=== PATIENT | female | born 1965 | race Caucasian/White ===

== ENCOUNTER → 2022-06-11 10:01 | Outpatient (CLI) | payer BC, SELFPAY | LOC: RT 10:09 | PROVIDERS: Visit Provider Nurse Practitioner Family | DX: R55 Syncope and collapse (principal) | CPT/HCPCS: 93225; 93226 ==

== ENCOUNTER 2022-06-30 13:49 | Emergency (ER) | payer BC, SELFPAY ==
[2022-06-30] VITALS (10 sets, daily range): BP systolic 111–160; BP diastolic 61–78; PULSE 60–83; RESP 18–96; TEMP 36.4–37; O2SAT 96–100; BMI 43.5
--- NOTE | 2022-06-30 14:27 | CT_ITS ---
PROCEDURE INFORMATION: Exam: CT Head Without Contrast Exam date and time: 06/30/2022 2:37 PM Age: 57 years old Clinical indication: Altered mental status/memory loss; Confusion or disorientation; Additional info: AMS TECHNIQUE: Imaging protocol: Computed tomography of the head without contrast. Radiation optimization: All CT scans at this facility use at least one of these dose optimization techniques: automated exposure control; mA and/or kV adjustment per patient size (includes targeted exams where dose is matched to clinical indication); or iterative reconstruction. REPORTING DATA: Count of CT and Cardiac NM exams in prior 12 months: This patient has received 0 known CTs and 0 known cardiac nuclear medicine studies in the 12 months prior to the current study. COMPARISON: No relevant prior studies available. FINDINGS: Brain: Normal. No hemorrhage. Unremarkable white matter. No mass effect. Cerebral ventricles: No ventriculomegaly. Paranasal sinuses: Approximately 2.5 cm left maxillary mucous retention cyst. Mastoid air cells: Visualized mastoid air cells are well aerated. Bones/joints: Unremarkable. No acute fracture. Soft tissues: Unremarkable. IMPRESSION: Approximately 2.5 cm left maxillary mucous retention cyst but no evidence of acute intracranial pathology.
[2022-06-30 14:50] LABS: Basophils # 0.1 K/mm3 (0-0.2); Basophils % 0.6 % (0.1-2.0); Eosinophils # 0.1 K/mm3 (0.0-0.4); Eosinophils % 0.9 % (0.1-12.0); Hematocrit 46.5 % (37.0-47.0); Hemoglobin 15.1 g/dL (12.2-16.2); Lymphocytes # 1.8 K/mm3 (0.7-4.5); Lymphocytes % 16.6 % (10-50); Mean Corpuscular HGB Conc 32.4 g/dL (31.8-35.4); Mean Corpuscular Hemoglobin 29.1 pg (27.0-31.2); Mean Corpuscular Volume 89.7 fl (81-99); Mean Platelet Volume 8.3 fl (7.4-10.4); Monocytes # 0.6 K/mm3 (0.1-1.0); Monocytes % 5.6 % (1.7-9.3); Neutrophils # 8.4 K/mm3 (1.8-7.8); Neutrophils % 76.2 % (37.0-80.0); Platelet Count 349 K/mm3 (142-424); Red Blood Count 5.19 M/mm3 (4.20-5.40); Red Cell Distribution Width 13.5 % (11.5-17.5); White Blood Count 11.1 K/mm3 (4.8-10.8)
[2022-06-30 14:51] LABS: Chloride 104 mmol/L (98-107)
[2022-06-30 14:52] LABS: Sodium 140 mmol/L (136-145)
[2022-06-30 14:54] LABS: Alanine Aminotransferase 21 U/L (12-78); Alkaline Phosphatase 112 U/L (38-126); Aspartate Amino Transferase 37 U/L (14-36); Bilirubin,Total 0.4 mg/dl (0.2-1.3); Blood Urea Nitrogen 21 mg/dl (7-17); Carbon Dioxide 29 mmol/L (22.0-30.0); Creatinine Clearance Estimated 81 mL/min (50-200); Estimated Glomerular Filt Rate 86 ml/min (>60); GFR (African American) 104 ML/MIN (>60)
[2022-06-30 14:55] LABS: Albumin Level 4.4 g/dl (3.5-5.0); Albumin/Globulin Ratio 1.2 (1.1-1.8); Globulin 3.7 g/dL (1.3-3.2); Glucose 88 mg/dl (74-100); Total Protein,Serum 8.1 g/dl (6.3-8.2)
[2022-06-30 15:00] LABS: C-Reactive Protein 28.2 mg/L (0-4)
--- NOTE | 2022-06-30 15:14 | XR_ITS ---
PROCEDURE INFORMATION: Exam: XR Chest Exam date and time: 06/30/2022 3:47 PM Age: 57 years old Clinical indication: Cough TECHNIQUE: Imaging protocol: Radiologic exam of the chest. Views: 1 view. COMPARISON: No relevant prior studies available. FINDINGS: Lungs: No evidence of acute pulmonary process. Pleural spaces: Unremarkable. No pleural effusion. No pneumothorax. Heart/Mediastinum: Unremarkable. No cardiomegaly. Bones/joints: Unremarkable. IMPRESSION: No evidence of acute pulmonary process.
[2022-06-30 15:21] LABS: Microscopic, Urine URINE MICROSCOPIC (MICROSCOPIC)
[2022-06-30 15:33] LABS: Appearance,Urine CLEAR (Clear); Bilirubin,Urine Negative (Negative); Blood, Urine Negative (Negative); Color,Urine YELLOW (Yellow); Glucose,Urine (UA) Negative (Negative); Ketones,Urine Negative (Negative); Leukocyte Esterase,Urine 1+ (Negative); Nitrate,Urine Negative (Negative); Protein,Urine Negative (Negative); Specific Gravity, Urine 1.025 (1.005-1.030); Urobilinogen,Urine 0.2 EU/dl (0.2)
--- NOTE | 2022-06-30 15:48 | HMH.EDGENADL ---
Discharge Plan Disposition Patient Disposition: Home, Self-Care Condition: Good Prescriptions Prescriptions: New cefdinir 300 mg capsule 300 mg PO BID 5 Days Qty: 10 0RF Referrals Follow up/Referrals: Tish Helton APRN [Primary Care Provider] - See instructions Clinical Impressions Clinical Impression: UTI (urinary tract infection) Instructions Patient Instructions: DI for Urinary Tract Infection (UTI) Discharge ED Provider: Domingo Alonso General Adult HPI General Chief complaint: Dizziness Stated complaint: soa dizzy heart racing Time Seen by Provider: 06/30/22 14:00 Mode of Arrival: Ambulatory Source of Information: Patient Limitations: No Limitations Description of Symptoms (Recalled from ER Triage Doc. by RN): Pt reports multiple complaints today, including lightheadedness and short of air at [facility] working today and cleared by EMS but brother presents her to ED; pt disoriented to location and reports recently disappearing and I woke up in [place] with only Rx anti-HTN meds and h/o; History of Present Illness HPI narrative: Patient is a 57-year-old who was recently admitted to the hospital for disorientation presents with lightheadedness and disorientation. She says that she was admitted to [facility] for disorientation. She says that she was admitted for 3 days. She says that since then she has continued to be a little confused. She says that she did not really get a diagnosis after she was discharged. She denies any chest or abdominal pain. Denies any dysuria. Denies any shortness of breath. Denies any cough or congestion. Denies any trauma. No blood thinners or antiplatelets. Related Data Previous Rx's Medication Instructions Recorded cefdinir 300 mg capsule 300 mg PO BID 5 days #10 caps 06/30/22 Allergies Allergy/AdvReac Type Severity Reaction Status Date / Time No Known Allergies Allergy Verified 06/30/22 14:34 [facility] Disclaimer: The information contained in this section may have been updated after the patient was seen, as this information can be updated by other users. Social History Smoking Status: Never smoker alcohol intake: never current occupational status: employed Travel in the last 8 weeks: None ROS Obtained: Yes All systems reviewed & no additional complaints except as documented Physical Exam General General appearance: alert and in no apparent distress Head Head exam: atraumatic, normocephalic and normal inspection Eye Eye exam: Present normal appearance and PERRL ENT ENT exam: Present normal exam, mucous membranes moist and normal external ear exam Neck Neck exam: Present normal inspection and trachea midline Chest Chest inspection: Present normal inspection and symmetric chest wall rise Respiratory Respiratory exam: Present normal lung sounds bilaterally; Absent respiratory distress Cardiovascular Cardiovascular exam: Present regular rate and normal rhythm Abdominal Exam Abdominal exam: Present soft; Absent distention, tenderness or guarding Extremities Exam Extremities exam: Present normal inspection; Absent edema Neurological Exam Neurological exam: Present alert and oriented X3 Psychiatric Psychiatric exam: Present normal affect and normal mood Skin Skin exam: Present warm, dry, intact and normal color Medical Decision Making Medical Records Medical records reviewed: Yes I reviewed the patient's medical records. Andrea Inquiry Pt receiving controlled substance: No Vital Signs: 06/30/22 14:13 06/30/22 14:00 06/30/22 14:27 Temperature 97.5 F L Temperature Source Oral Pulse Rate 76 73 Pulse Rate [Right Radial] 78 Respiratory Rate 18 Blood Pressure 116/78 126/62 Blood Pressure [Right Arm] 116/78 Blood Pressure Mean 81 72 Blood Pressure Mean [Right Arm] 90 Blood Pressure Source [Right Arm] Automatic Cuff Blood Pressure Position [Right Arm] Supine 02 Sat by Pulse Oximetry 96
[2022-06-30 15:52] LABS: Bacteria,Urine Trace /lpf
== END 2022-06-30 17:00 | disposition home or self-care (01) ==
PROVIDERS: Emergency Provider Student in an Organized Health Care Education/Training Program; PCP Nurse Practitioner Family
DX: N39.0 Urinary tract infection, site not specified (principal); B95.4 Other streptococcus as the cause of diseases classified elsewhere; R41.0 Disorientation, unspecified
CPT/HCPCS: 70450; 71045; 80053; 81001; 85025; 86140; 87086; 87088; 87186; 96360; 99284; 99285

== ENCOUNTER → 2022-07-02 10:02 | Outpatient (CLI) | payer BC, SELFPAY ==
--- NOTE | 2022-07-02 10:06 | XR_ITS ---
FINAL REPORT CLINICAL HISTORY: RT KNEE PAIN FINDINGS: AP, lateral and oblique views of the right knee were obtained. There is no prior exam for comparison. There is no acute osseous abnormality of the right knee. There is mild degenerative disease. The soft tissues are normal. There is no joint effusion. IMPRESSION: Mild degenerative disease with no acute osseous abnormality of the right knee. Reviewed, Interpreted and Dictated by Bee Lewis MD Transcribed by Sherri Nieto Authenticated and [facility]
--- NOTE | 2022-07-02 10:06 | XR_ITS ---
FINAL REPORT CLINICAL HISTORY: RT LEG PAIN FINDINGS: AP and lateral views of the right tibia and fibula were obtained. There is no prior exam for comparison. There is no acute fracture of the right tibia or fibula. There is advanced degenerative disease at the ankle with a deformity of the distal tibia which may be related to an old fracture. The soft tissues are normal. IMPRESSION: 1. No acute osseous abnormality of the right tibia or fibula. 2. Advanced degenerative disease of the ankle. And Reviewed, Interpreted and Dictated by Bee Lewis MD Transcribed by Sherri Nieto Authenticated and [facility]
== END ==
LOC: RAD 10:02
PROVIDERS: PCP Nurse Practitioner Family; Visit Provider Nurse Practitioner Family
DX: M79.604 Pain in right leg (principal); M25.561 Pain in right knee
CPT/HCPCS: 73562; 73590

== ENCOUNTER 2022-07-16 18:07 | Emergency (ER) | payer BC, SELFPAY ==
[2022-07-16 18:23] VITALS: BP 149/64; PULSE 70; RESP 20; TEMP 36.4; O2SAT 96; BMI 44.4
--- NOTE | 2022-07-16 18:25 | CT_ITS ---
PROCEDURE INFORMATION: Exam: CTA Head With Contrast, Arteriography Exam date and time: 07/16/2022 7:29 PM Age: 57 years old Clinical indication: Pain; Headache TECHNIQUE: Imaging protocol: Computed tomographic angiography of the head with contrast. Exam focused on the arteries. 3D rendering (Not supervised by radiologist): MIP and/or 3D reconstructed images were created by the technologist. Radiation optimization: All CT scans at this facility use at least one of these dose optimization techniques: automated exposure control; mA and/or kV adjustment per patient size (includes targeted exams where dose is matched to clinical indication); or iterative reconstruction. Contrast material: ISOVUE 370; Contrast volume: 100 ml; Contrast route: INTRAVENOUS (IV); REPORTING DATA: Count of CT and Cardiac NM exams in prior 12 months: This patient has received 3 known CTs and 0 known cardiac nuclear medicine studies in the 12 months prior to the current study. COMPARISON: CT HEAD/BRAIN WO CON 07/16/2022 7:24 PM FINDINGS: ANTERIOR CIRCULATION: Right internal carotid artery: Intracranial segment is patent with no significant stenosis. No aneurysm. Right middle cerebral artery: No occlusion or significant stenosis. No aneurysm. Right anterior cerebral artery: No occlusion or significant stenosis. No aneurysm. Left internal carotid artery: Intracranial segment is patent with no significant stenosis. No aneurysm. Left middle cerebral artery: No occlusion or significant stenosis. No aneurysm. Left anterior cerebral artery: No occlusion or significant stenosis. No aneurysm. POSTERIOR CIRCULATION: Right vertebral artery: No occlusion or significant stenosis. No aneurysm. Left vertebral artery: No occlusion or significant stenosis. No aneurysm. Basilar artery: No occlusion or significant stenosis. No aneurysm. Right posterior cerebral artery: No occlusion or significant stenosis. No aneurysm. Left posterior cerebral artery: No occlusion or significant stenosis. No aneurysm. Brain: No definite mass, mass effect, or midline shift. Cerebral ventricles: No ventriculomegaly. Bones/joints: Hyperostosis frontalis. No acute fracture. Soft tissues: Left maxillary sinus mucosal retention cyst. IMPRESSION: No large vessel stenosis or occlusion.
--- NOTE | 2022-07-16 18:25 | ECG_ITS ---
APPROVED REPORT Exam: Resting ECG HR:65 bpm ECG Measurements Heart Rate 65 AXES ME 145 P -25 QRSd 101 QRS 43 QT 401 T 30 QTc 412 Conclusion SINUS RHYTHM LOW QRS VOLTAGE IN PRECORDIAL LEADS [QRS DEFLECTION < 1.0 mV IN CHEST LEADS] INCOMPLETE RIGHT BUNDLE BRANCH BLOCK [90+ ms QRS DURATION, TERMINAL R IN V1/V2, 40+ ms S IN I/aVL/V4/V5/V6] BORDERLINE ECG INTERPRETATION BASED ON A DEFAULT AGE OF 40 YEARS UNCONFIRMED REPORT Electronically signed by : Bubba Fischer MD 07/19/2022 09:37:19
--- NOTE | 2022-07-16 18:25 | CT_ITS ---
PROCEDURE INFORMATION: Exam: CT Head Without Contrast Exam date and time: 07/16/2022 7:24 PM Age: 57 years old Clinical indication: Pain; Headache not specified TECHNIQUE: Imaging protocol: Computed tomography of the head without contrast. Radiation optimization: All CT scans at this facility use at least one of these dose optimization techniques: automated exposure control; mA and/or kV adjustment per patient size (includes targeted exams where dose is matched to clinical indication); or iterative reconstruction. REPORTING DATA: Count of CT and Cardiac NM exams in prior 12 months: This patient has received 3 known CTs and 0 known cardiac nuclear medicine studies in the 12 months prior to the current study. COMPARISON: CT HEAD/BRAIN WO CON 06/30/2022 2:37 PM FINDINGS: Brain: Evaluation of posterior fossa structures is limited by adjacent artifact. No large territorial infarction. No hemorrhage. No mass effect or midline shift. Cerebral ventricles: No ventriculomegaly. Paranasal sinuses: Mucosal retention cyst within the left maxillary sinus. No fluid levels. Mastoid air cells: Visualized mastoid air cells are well aerated. Bones/joints: Hyperostosis frontalis. Soft tissues: No significant soft tissue abnormality. IMPRESSION: No acute findings.
--- NOTE | 2022-07-16 18:25 | CT_ITS ---
PROCEDURE INFORMATION: Exam: CTA Neck With Contrast Exam date and time: 07/16/2022 7:29 PM Age: 57 years old Clinical indication: Pain; Headache TECHNIQUE: Imaging protocol: Computed tomographic angiography of the neck with contrast. 3D rendering (Not supervised by radiologist): MIP and/or 3D reconstructed images were created by the technologist. Radiation optimization: All CT scans at this facility use at least one of these dose optimization techniques: automated exposure control; mA and/or kV adjustment per patient size (includes targeted exams where dose is matched to clinical indication); or iterative reconstruction. Contrast material: ISOVUE 370; Contrast volume: 100 ml; Contrast route: INTRAVENOUS (IV); REPORTING DATA: Count of CT and Cardiac NM exams in prior 12 months: This patient has received 3 known CTs and 0 known cardiac nuclear medicine studies in the 12 months prior to the current study. COMPARISON: CT HEAD/BRAIN WO CON 07/16/2022 7:24 PM FINDINGS: Right common carotid artery: No stenosis. No dissection or occlusion. Right internal carotid artery: No stenosis of the extracranial segment. No dissection or occlusion. Right external carotid artery: No occlusion or stenosis of the origin. Left common carotid artery: No stenosis. No dissection or occlusion. Left internal carotid artery: Mild narrowing at the origin of the left internal carotid artery. Left external carotid artery: No occlusion or stenosis of the origin. Right vertebral artery: No stenosis. No dissection or occlusion. Left vertebral artery: No stenosis. No dissection or occlusion. Thyroid: Coarse left-sided thyroid calcification measuring 4 mm. Soft tissues: Normal. No significant soft tissue swelling. Bones/joints: Degenerative changes of the spine. No acute fracture. Lungs: Apical ground-glass pulmonary opacities with partially visualized right posteromedial subpleural nodular density measuring 6 x 11 mm. IMPRESSION: 1. No acute vascular abnormality. 2. Apical ground-glass pulmonary opacities with partially visualized right posteromedial subpleural nodule. For both low risk and high risk patients, consider repeat CT Chest at 3 months and or PET-CT. (Reference: Anibal) REFERENCES: NASCET CRITERIA. The degree of stenosis in the cervical segment of the internal carotid artery is based on NASCET criteria. Normal is no stenosis. Mild is less than 50% stenosis. Moderate is 50-69% stenosis. Severe is 70% to 99% stenosis. Total occlusion is no detectable patent lumen. Anibal Collazo, et al. Guidelines for Management of Incidental Pulmonary Nodules Detected on CT Images: From the Fleischner Society 2017. Radiology. 2017;284(1):228-243.
[2022-07-16 18:27] VITALS: BP 109/56; BP 126/61; BP 151/61
--- NOTE | 2022-07-16 18:30 | HMH.EDGENADL ---
Discharge Plan Disposition Patient Disposition: Still a Patient Referrals Follow up/Referrals: Tish Helton APRN [Primary Care Provider] - See instructions Clinical Impressions Clinical Impression: Dizziness Discharge ED Provider: Chriss Cannon General Adult HPI General Chief complaint: Dizziness Stated complaint: dizzy Time Seen by Provider: 07/16/22 18:10 Mode of Arrival: Ambulatory Source of Information: Patient Limitations: No Limitations Description of Symptoms (Recalled from ER Triage Doc. by RN): pt to ed c/o dizziness. pt states she has progressively gotten more dizzy the last two days. pt reports she had a bloody nose yesterday. pt denies cp or soa. pt denies visual changes. History of Present Illness HPI narrative: 57-year-old female presents with dizziness. She has had persistent systems since being evaluated by cardiology earlier this month and has palpitations as well. No new chest pain shortness of air. No coughing up blood or prior pulmonary embolism. She had a bloody nose yesterday that has now resolved. She has a dull headache that she says is new for her nonradiating was not thunderclap. No numbness weakness or tingling arms or legs. No vision changes. She feels a little bit weaker when she sits up. Related Data Allergies Allergy/AdvReac Type Severity Reaction Status Date / Time No Known Allergies Allergy Verified 07/08/22 09:02 [facility] Disclaimer: The information contained in this section may have been updated after the patient was seen, as this information can be updated by other users. Social History Smoking Status: Never smoker alcohol intake: never current occupational status: employed Travel in the last 8 weeks: None ROS Obtained: Yes All systems reviewed & no additional complaints except as documented Constitutional Constitutional: Denies fever(s) Eyes Eyes: Denies dry eyes ENT Ears, Nose, Mouth, and Throat: Denies disequilibrium and Reports dizziness Cardiovascular Cardiovascular: Denies dyspnea Respiratory Respiratory: Denies dyspnea Gastrointestinal Gastrointestingal: Denies constipation Genitourinary Female Genitourinary: Denies hematuria Musculoskeletal Musculoskeletal: Denies arthralgias Integumentary/Breasts Skin/Breast: Denies dry skin Neurologic Neurologic: Denies confusion, Denies convulsions, Denies disequilibrium and Reports dizziness Hematologic/Lymphatic Henatologic/Lymphatic: Denies easy bleeding Physical Exam General General appearance: alert and in no apparent distress Eye Eye exam: Present PERRL and EOMI ENT ENT exam: Present normal exam and normal oropharynx Neck Neck exam: Present normal inspection Chest Chest inspection: Present symmetric chest wall rise Respiratory Respiratory exam: Present normal lung sounds bilaterally; Absent respiratory distress Cardiovascular Cardiovascular exam: Present regular rate and normal rhythm Abdominal Exam Abdominal exam: Present soft; Absent distention, tenderness, guarding, rebound, King's sign or tenderness at McBurney's Point Back Exam Back exam: Present normal inspection Neurological Exam Neurological exam: Present alert, oriented X3, CN II-XII intact, normal gait and other (No nystagmus, no ataxia); Absent motor sensory deficit Psychiatric Psychiatric exam: Present normal affect and normal mood Skin Skin exam: Present warm, dry and intact Lymphatic Lymphatic Findings: no adenopathy Medical Decision Making Medical Records Medical records reviewed: Yes I reviewed the patient's medical records. Andrea Inquiry Pt receiving controlled substance: No Andrea was queried for this patient: No Vital Signs: 07/16/22 18:23 07/16/22 18:27 Temperature 97.5 F L Temperature Source Oral Pulse Rate [Left Radial] 70 Respiratory Rate 20 Blood Pressure [Orthostatic Lying] 151/61 H Blood Pressure [Orthostatic Sitting] 126/61 Blood Pressure [Orthos
[2022-07-16 18:48] LABS: Basophils % 0.4 % (0.1-2.0); Eosinophils # 0.2 K/mm3 (0.0-0.4); Eosinophils % 1.9 % (0.1-12.0); Hematocrit 43.2 % (37.0-47.0); Hemoglobin 13.7 g/dL (12.2-16.2); Lymphocytes # 2.4 K/mm3 (0.7-4.5); Mean Corpuscular HGB Conc 31.7 g/dL (31.8-35.4); Mean Corpuscular Hemoglobin 29.2 pg (27.0-31.2); Monocytes # 0.6 K/mm3 (0.1-1.0); Monocytes % 5.6 % (1.7-9.3); Neutrophils # 6.7 K/mm3 (1.8-7.8); Neutrophils % 68.2 % (37.0-80.0); Platelet Count 328 K/mm3 (142-424); Red Cell Distribution Width 13.8 % (11.5-17.5); White Blood Count 9.9 K/mm3 (4.8-10.8)
[2022-07-16 18:53] LABS: Alanine Aminotransferase 19 U/L (12-78); Albumin Level 4.1 g/dl (3.5-5.0); Albumin/Globulin Ratio 1.1 (1.1-1.8); Alkaline Phosphatase 77 U/L (38-126); Anion Gap 6.9 mEq/L (5-15); Aspartate Amino Transferase 34 U/L (14-36); Bilirubin,Total 0.6 mg/dl (0.2-1.3); Blood Urea Nitrogen 19 mg/dl (7-17); Calcium 8.7 mg/dl (8.4-10.2); Carbon Dioxide 29 mmol/L (22.0-30.0); Chloride 103 mmol/L (98-107); Creatinine Clearance Estimated 81 mL/min (50-200); Estimated Glomerular Filt Rate 86 ml/min (>60); GFR (African American) 104 ML/MIN (>60); Globulin 3.7 g/dL (1.3-3.2); Glucose 90 mg/dl (74-100); Magnesium 2.1 mg/dl (1.6-2.3); Potassium 4.9 mmoL/L (3.5-5.1); Sodium 134 mmol/L (136-145); Total Protein,Serum 7.8 g/dl (6.3-8.2)
[2022-07-16 19:08] LABS: Troponin I < 0.01 ng/ml (0.00-0.034)
[2022-07-16 19:24] LABS: Thyroid Stimulating Hormone 2.02 uIU/mL (0.465-4.68)
[2022-07-16 20:52] VITALS: BP 137/49; PULSE 64; O2SAT 98
[2022-07-16 20:56] LABS: Microscopic, Urine URINE MICROSCOPIC (MICROSCOPIC)
[2022-07-16 20:57] LABS: Appearance,Urine CLEAR (Clear); Bilirubin,Urine Negative (Negative); Blood, Urine Negative (Negative); Color,Urine YELLOW (Yellow); Glucose,Urine (UA) Negative (Negative); Ketones,Urine Negative (Negative); Leukocyte Esterase,Urine 1+ (Negative); Nitrate,Urine Negative (Negative); Protein,Urine Negative (Negative); Urobilinogen,Urine 0.2 EU/dl (0.2)
[2022-07-16 21:23] LABS: Bacteria,Urine Trace /lpf
[2022-07-16 22:25] VITALS: BP 136/84; PULSE 72; RESP 19; TEMP 36.7; O2SAT 98
[2022-07-16 22:44] LABS: Troponin I < 0.01 ng/ml (0.00-0.034)
== END 2022-07-16 22:32 | disposition home or self-care (01) ==
PROVIDERS: Emergency Medicine; Emergency Provider Emergency Medicine; PCP Nurse Practitioner Family
DX: R42 Dizziness and giddiness (principal)
CPT/HCPCS: 36415; 70450; 70496; 70498; 80053; 81001; 83735; 84443; 84484; 85025; 87086; 93005; 96360; 99285; Q9967

== ENCOUNTER 2022-11-06 09:43 | Emergency (ER) | payer BC, SELFPAY ==
--- NOTE | 2022-11-06 09:50 | EXP.UTC ---
Discharge Plan Disposition Patient Disposition: Home, Self-Care Condition: Good Prescriptions Prescriptions: New methylprednisolone 4 mg Tablets,Dose Pack 4 mg PO DIRECTED Qty: 21 0RF No Action methotrexate sodium [Methotrexate (Anti-Rheumatic)] 2.5 mg Tablet 2.5 mg PO WEEKLY losartan 25 mg Tablet 25 mg PO BID folic acid 1 mg Tablet 1 mg PO DAILY Referrals Follow up/Referrals: Provider,Referral, [Primary Care Provider] - See instructions Jimena Moe DPM [Staff Physician] - See instructions Activity Restrictions/Add. Instructions Additional Instructions/Restrictions: Rest the extremity, Elevate the extremity as tolerated while you are resting. Take methylprednisone (steroids) as directed. Follow up with Dr. Moe (podiatry). I put in a referral but you need to call her office and schedule an appointment. Follow up with your regular doctor. GO TO THE ER FOR ANY WORSENING SYMPTOMS Clinical Impressions Clinical Impression: Arthritis of right foot, Arthritis of right ankle, Ankle pain, right Stand Alone Forms Stand Alone Forms: Work/School Release Instructions Patient Instructions: DI for Ankle Pain, DI for Arthritis Discharge ED Provider: Errol Trinh [facility] General Stated complaint: right heel pain, difficulty walking, no accident Time Seen by Provider: 11/06/22 09:50 History of Present Illness Provider Complaint: She states that for the past 4 days she has had right heel pain. She denies any injury. Walking and bearing weight makes her pain worse. She has had episodes of this pain to flare up in the past. She was diagnosed with arthritis of her right ankle and foot. Related Data Home Medications Medication Instructions Recorded Confirmed folic acid 1 mg tablet 1 mg PO DAILY Supplement 11/06/22 11/06/22 losartan 25 mg tablet 25 mg PO BID htn 11/06/22 11/06/22 methotrexate sodium 2.5 mg tablet 2.5 mg PO WEEKLY Arthritis 11/06/22 11/06/22 Previous Rx's Medication Instructions Recorded methylprednisolone 4 mg tablets in 4 mg PO DIRECTED #21 tabs 11/06/22 a dose pack Allergies Allergy/AdvReac Type Severity Reaction Status Date / Time No Known Allergies Allergy Verified 11/06/22 10:07 [facility] Disclaimer: The information contained in this section may have been updated after the patient was seen, as this information can be updated by other users. Medical History (Updated 11/06/22 @ 10:56 by Errol Trinh APRN) COPD (chronic obstructive pulmonary disease) Hypertension Rheumatoid arthritis Surgical History (Updated 11/06/22 @ 10:11 by Evelyn Sterling RN) No significant past surgical history Family History (Updated 11/06/22 @ 10:11 by Evelyn Sterling RN) Other No significant family history Social History (Updated 11/06/22 @ 10:06 by Evelyn Sterling RN) Smoking Status: Never smoker alcohol intake: never current occupational status: employed Travel in the last 8 weeks: None ROS Obtained: Yes All systems reviewed & no additional complaints except as documented Constitutional Constitutional: Denies chills and Denies fever(s) Eyes Eyes: Denies eye discharge ENT Ears, Nose, Mouth, and Throat: Denies dizziness, Denies otalgia and Denies sore throat Cardiovascular Cardiovascular: Denies chest pain Respiratory Respiratory: Denies shortness of breath, Denies chest congestion, Denies cough, Denies stridor and Denies wheezing Gastrointestinal Gastrointestingal: Denies nausea or vomiting Musculoskeletal Musculoskeletal: Reports as per HPI Integumentary/Breasts Skin/Breast: Denies rash Neurologic Neurologic: Denies dizziness and Denies paresthesias Allergic/Immunologic Allergic/Immunologic: Denies wheezing Physical Exam General General appearance: alert and in no apparent distress Head Head exam: atraumatic, normocephalic and normal inspection Eye Eye exam: Present normal appearance, PERRL and EOMI ENT ENT
--- NOTE | 2022-11-06 10:04 | XR_ITS ---
FINAL REPORT CLINICAL HISTORY: pain, heel and lateral right foot and ankle COMPARISON: None FINDINGS: RIGHT FOOT: Three views of the right foot were obtained. There is no acute fracture or dislocation. There is hallux valgus deformity. There are moderate degenerative changes. There is no soft tissue abnormality. IMPRESSION: Degenerative changes without acute bony abnormality. Reviewed, Interpreted and Dictated by Jeremy Tyson III, MD Transcribed by Brinda Delgado Authenticated and [facility]
--- NOTE | 2022-11-06 10:04 | XR_ITS ---
FINAL REPORT CLINICAL HISTORY: pain, heel and lateral right ankle COMPARISON: None FINDINGS: RIGHT ANKLE: Three views of the right ankle were obtained. There is no acute fracture or dislocation. There are severe degenerative changes. There is no soft tissue abnormality. IMPRESSION: Severe degenerative changes without acute bony abnormality. Reviewed, Interpreted and Dictated by Jeremy Tyson III, MD Transcribed by Brinda Delgado Authenticated and [facility][1]
[2022-11-06 10:07] VITALS: BP 139/62; PULSE 74; RESP 18; TEMP 36.8; O2SAT 93; BMI 48.6
[2022-11-06 11:05] VITALS: BP 139/62; PULSE 74; RESP 18; TEMP 36.8; O2SAT 93
== END 2022-11-06 11:05 | disposition home or self-care (01) ==
PROVIDERS: Emergency Provider Nurse Practitioner Family
DX: M25.571 Pain in right ankle and joints of right foot (principal); M19.071 Primary osteoarthritis, right ankle and foot; J44.9 Chronic obstructive pulmonary disease, unspecified; I10 Essential (primary) hypertension
CPT/HCPCS: 73610; 73630; 99204; 99212; G0463

== ENCOUNTER → 2022-12-12 12:07 | Outpatient (CLI) | payer BC, SELFPAY ==
--- NOTE | 2022-12-12 12:16 | XR_ITS ---
FINAL REPORT CLINICAL HISTORY: Foot Pain FINDINGS: Left foot Two views were obtained. There is no fracture or dislocation. There is pes planus deformity. Mild degenerative changes are present. There is hallux valgus deformity. Calcaneal spurs are identified. No soft tissue abnormality is identified. IMPRESSION: Degenerative changes as detailed above. Reviewed, Interpreted and Dictated by Jeremy Tyson III, MD Transcribed by Sabrina Phan Authenticated and [facility]
== END ==
PROVIDERS: PCP Physician Assistant; Visit Provider Nurse Practitioner Family
DX: M79.672 Pain in left foot (principal)
CPT/HCPCS: 73630

== ENCOUNTER 2023-02-04 12:43 | Outpatient (RCR) | payer BC, SELFPAY ==
--- NOTE | 2023-02-04 14:42 | HMH.PTOPEV ---
PT Outpatient Evaluation Rehab PT Outpatient Evaluation Start: 02/04/23 13:44 Freq: Status: Active Protocol: Document 02/04/23 13:45 TIFFANY (Rec: 02/04/23 14:42 TIFFANY [id number]) E-signed By Domingo Crowe, PT Outpatient Therapy Subjective History Subjective History Pt reports h/o chronic bilateral foot/ankle pain, swelling, and weakness. Pt reports s/s in feet and ankles have been present for ' several years' and over the last year 'since I switched job locations for [employer], I've been on a concrete floor and it's been a whole lot worse.' Pt reports right > left related to swelling and pain, and reports pain starts on the anterior aspect of of both ankles and radiates onto top of both feet. Chief Complaint Pain,Stiff,Swelling, Paresthesia Symptom Type Ache,Throb,Sharp,Dull,Stabbing ,Burning,Numbness,Tingling, Shooting Symptoms Relieved By Nothing Symptoms Aggravated By Standing,Physical Activity, Walking Prior Functional Limitations Housework,Standing,Walking Current Functional Limitations Housework,Standing,Walking Symptom Description Constant but Variable Level of pain today (0-10) 8 Pain scale - at its best (0-10) 8 Pain scale - at its worst (0-10) 10 Ankle/Foot Eval Gait Observation General Gait Pattern Observation Antalgic Gait Assistive Device Ambulation Assistive Device Straight Cane Palpation Tenderness left Ankle/Foot Palpation Findings Tenderness Ankle/Foot Palpation Overall Comment 3-4/4 anterior talo-crural jt, 3-4/4 4-5th dorsum metatarsal surface right Ankle/Foot Palpation Findings Tenderness Ankle/Foot Palpation Overall Comment 3-4/4 anterior talo-crural, 3- 4/4 dorsum surface R foot ROM left Ankle/Foot Dorsiflexion w/Knee Extended 0-10 Active Range Motion (degrees) Ankle/Foot Plantar Flexion Active Range 0-29 of Motion (degrees) Ankle/Foot Eversion Active Range of 0-10 Motion (degrees) Ankle/Foot Inversion Active Range of 0-58 Motion (degrees) right Ankle/Foot Dorsiflexion w/Knee Extended 0-3 Active Range Motion (degrees) Ankle/Foot Plantar Flexion Active Range 0-30 of [place]
== END 2023-02-04 12:45 | disposition home or self-care (01) ==
LOC: PT 12:43
PROVIDERS: PCP Nurse Practitioner Family; Visit Provider Podiatrist
DX: M79.671 Pain in right foot (principal); M79.672 Pain in left foot; M19.071 Primary osteoarthritis, right ankle and foot; M19.072 Primary osteoarthritis, left ankle and foot
CPT/HCPCS: 97163

== ENCOUNTER 2023-03-13 12:47 | Emergency (ER) | payer BC, SELFPAY ==
[2023-03-13] VITALS (10 sets, daily range): BP systolic 79–116; BP diastolic 54–83; PULSE 66–89; RESP 16–22; TEMP 36.6–37.1; O2SAT 91–94; BMI 48.6
--- NOTE | 2023-03-13 13:11 | HMH.EDGENADL ---
Discharge Plan Disposition Patient Disposition: Home, Self-Care Condition: Good Prescriptions Prescriptions: New ondansetron 4 mg tablet,disintegrating 4 mg PO Q8H PRN (Reason: nausea and vomiting) 5 Days Qty: 12 0RF meclizine 25 mg tablet 25 mg PO TID PRN (Reason: dizziness) Qty: 20 0RF sulfamethoxazole-trimethoprim [Bactrim DS] 800-160 mg tablet 1 tab PO BID 10 Days Qty: 20 0RF No Action methotrexate sodium [Methotrexate (Anti-Rheumatic)] 2.5 mg Tablet 2.5 mg PO WEEKLY losartan 25 mg Tablet 25 mg PO BID folic acid 1 mg Tablet 1 mg PO DAILY Referrals Follow up/Referrals: Annie Pierre APRN [Primary Care Provider] - See instructions Activity Restrictions/Add. Instructions Additional Instructions/Restrictions: You were evaluated in the emergency department today. Your urine is concerning for infection, so I am prescribing you an antibiotic. Please complete the full course. Please make sure that you are staying hydrated at home. supervisor [employer] and can supply your prescription and take them as needed for symptoms. Follow-up with your primary care provider over the next 3 days for reassessment. Return to the emergency department for new or worsening symptoms. Clinical Impressions Clinical Impression: Pre-syncope, Vertigo, Acute dehydration, Pyelonephritis Instructions Patient Instructions: Vertigo, DI for Kidney Infection, DI for Dizziness-Nonvertigo Discharge ED Provider: Carmen Au General Adult HPI General Chief complaint: Hyper/Hypoglycemia Stated complaint: dizziness, vomiting Time Seen by Provider: 03/13/23 12:59 Mode of Arrival: Ambulatory Source of Information: Patient Limitations: No Limitations Description of Symptoms (Recalled from ER Triage Doc. by RN): pt at dr Fischer's office and on exam bed started feeling light headed, dizzy, clammy, nausea, dry-heave BP 80/50 History of Present Illness HPI narrative: This patient is a 57-year-old female with a history of orthostatic hypotension, dizziness, syncope, palpitations, rheumatoid arthritis on methotrexate, and hypertension on losartan presenting to the emergency department for evaluation with concern for presyncope that happened at her PCPs office. She went to her primary care provider today for recheck of her legs, as she has history of arthritis, plantar fasciitis, heel spurs, pes planus, and hallux valgus. When she sat up on the table, she started feeling dizzy like the room was wobbling, felt clammy, had nausea, and started dry heaving. Blood pressure was noted to be in the 80s over 50s. Given this, they sent her over here for evaluation. She does note that she has had issues with vertigo in the past, and she does note that she had an upper respiratory infection approximately 2 weeks ago. She states she is otherwise been doing okay with no fevers, chills, headache, vision changes, numbness, tingling, unilateral weakness, balance issues, chest pain, shortness of breath, abdominal pain, changes in bowel movements, rashes, or swelling. She currently states that she is feeling a little bit better but she still feels very weak, lightheaded, and nauseated. Related Data Home Medications Medication Instructions Recorded Confirmed folic acid 1 mg tablet 1 mg PO DAILY Supplement 11/06/22 01/27/23 losartan 25 mg tablet 25 mg PO BID htn 11/06/22 01/27/23 methotrexate sodium 2.5 mg tablet 2.5 mg PO WEEKLY Arthritis 11/06/22 01/27/23 Previous Rx's Medication Instructions Recorded meclizine 25 mg tablet 25 mg PO TID PRN dizziness #20 tabs 03/13/23 ondansetron 4 mg disintegrating 4 mg PO Q8H PRN nausea and 03/13/23 tablet vomiting 5 days #12 tabs sulfamethoxazole 800 1 tab PO BID 10 days #20 tabs 03/13/23 mg-trimethoprim 160 mg tablet (Bactrim DS) Allergies Allergy/AdvReac Type Severity Reaction Status Date / Time steroids AdvReac Intermediate Other Uncoded 12/18/22 14:32 [facility] Disclaimer: The information cont
[2023-03-13 13:14] LABS: Basophils # 0.1 K/mm3 (0-0.2); Basophils % 0.5 % (0.1-2.0); Eosinophils # 0.2 K/mm3 (0.0-0.4); Eosinophils % 1.8 % (0.1-12.0); Hematocrit 44.7 % (37.0-47.0); Hemoglobin 15.1 g/dL (12.2-16.2); Lymphocytes # 3.3 K/mm3 (0.7-4.5); Lymphocytes % 27.6 % (10-50); Mean Corpuscular HGB Conc 33.7 g/dL (31.8-35.4); Mean Corpuscular Hemoglobin 31.1 pg (27.0-31.2); Mean Corpuscular Volume 92.4 fl (81-99); Mean Platelet Volume 8.1 fl (7.4-10.4); Monocytes # 0.7 K/mm3 (0.1-1.0); Monocytes % 5.7 % (1.7-9.3); Neutrophils # 7.6 K/mm3 (1.8-7.8); Neutrophils % 64.4 % (37.0-80.0); Platelet Count 362 K/mm3 (142-424); Red Blood Count 4.84 M/mm3 (4.20-5.40); Red Cell Distribution Width 13.4 % (11.5-17.5); White Blood Count 11.8 K/mm3 (4.8-10.8)
[2023-03-13 13:18] LABS: Alanine Aminotransferase 26 U/L (12-78); Albumin Level 3.7 g/dl (3.5-5.0); Albumin/Globulin Ratio 0.9 (1.1-1.8); Alkaline Phosphatase 87 U/L (38-126); Anion Gap 7.8 mEq/L (5-15); Aspartate Amino Transferase 31 U/L (14-36); Bilirubin,Total 0.5 mg/dl (0.2-1.3); Blood Urea Nitrogen 19 mg/dl (7-17); Calcium 8.8 mg/dl (8.4-10.2); Carbon Dioxide 28 mmol/L (22.0-30.0); Chloride 107 mmol/L (98-107); Creatinine Clearance Estimated 50 mL/min (50-200); Estimated Glomerular Filt Rate 57 ml/min (>60); GFR (African American) 69 ML/MIN (>60); Globulin 4.2 g/dL (1.3-3.2); Glucose 116 mg/dl (74-100); Lipase 67 U/L (23-300); Potassium 3.8 mmoL/L (3.5-5.1); Sodium 139 mmol/L (136-145); Total Protein,Serum 7.9 g/dl (6.3-8.2)
[2023-03-13 13:19] LABS: Magnesium 1.9 mg/dl (1.6-2.3)
[2023-03-13 13:35] LABS: T4 (Thyroxine) 10.8 ug/dl (5.53-11.0)
--- NOTE | 2023-03-13 13:38 | PC.NURSE ---
ROUNDED ON PT, NO NEEDS AT THIS TIME
[2023-03-13 13:41] LABS: Troponin I < 0.01 ng/ml (0.00-0.034)
[2023-03-13 14:36] LABS: Microscopic, Urine URINE MICROSCOPIC (MICROSCOPIC)
[2023-03-13 14:52] LABS: Appearance,Urine CLEAR (Clear); Blood, Urine Negative (Negative); Color,Urine YELLOW (Yellow); Glucose,Urine (UA) Negative (Negative); Ketones,Urine Negative (Negative); Leukocyte Esterase,Urine 1+ (Negative); Nitrate,Urine Negative (Negative); PH,Urine 5.5 (5.0-8.5); Protein,Urine TRACE (Negative); Specific Gravity, Urine >= 1.030 (1.005-1.030); Urobilinogen,Urine 0.2 EU/dl (0.2)
[2023-03-13 15:03] LABS: Bilirubin,Urine 1+ (Negative)
[2023-03-13 15:29] LABS: Amorphous Sediment,Urine Trace /lpf; Bacteria,Urine 1+ /lpf; RBC,Urine Occasional #/hpf (0-3)
[2023-03-13 17:56] LABS: Thyroid Stimulating Hormone 4.11 uIU/mL (0.465-4.68)
--- NOTE | 2023-03-16 16:08 | PC.NURSE ---
urine culture shows less than 10,000 colony forming bacteria, pt dc with Bactrim DS, No further action per
== END 2023-03-13 15:51 | disposition home or self-care (01) ==
PROVIDERS: Emergency Provider Emergency Medicine; PCP Nurse Practitioner Family
DX: R55 Syncope and collapse (principal); R42 Dizziness and giddiness; E86.0 Dehydration; N12 Tubulo-interstitial nephritis, not specified as acute or chronic; M06.9 Rheumatoid arthritis, unspecified; J44.9 Chronic obstructive pulmonary disease, unspecified; I10 Essential (primary) hypertension
CPT/HCPCS: 80053; 81001; 83690; 83735; 84436; 84443; 84484; 85025; 87086; 93005; 96361; 96374; 99285; J2405